=== PATIENT | female | born 1965 | race Caucasian/White ===

== ENCOUNTER → 2020-02-05 | Day surgery (SDC) | payer BC ==
[~2020-02-05] VITALS: Ht 172.7 cm; Wt 113.0 kg
[~2020-02-05] MED LIST: ACET325T9 PO; ACETAMINOPHEN 500 MG TABLET PO PRN; ASPI-630 PO; BUPIVACAINE-EPI 0.25%-1:200000 MPF 30 ML VIAL. ONE; FAMOTIDINE 20 MG/2 ML VIAL ONE; GLYCOPYRROLATE 1 MG/5 ML VIAL. ONE; IV RINGERS,LACTATED 1000ML 1,000 ML IV SCH; LIDOCAINE 2% PF 5 ML VIAL. ONE; MIDAZOLAM HCL/PF 2 MG/2 ML VIAL. ONE; MINERAL OIL for SURGERY 10 ML VIAL. MC ONE; NEOSTIGMINE METHYLSULFATE 5 MG/5 ML SYRINGE. ONE; ONDANSETRON PF 4 MG/2 ML VIAL. IV PRN; ONDANSETRON PF 4 MG/2 ML VIAL. ONE; OXYC-325 PO; PHENYLEPHRINE in 0.9% NACL PF 1 MG/10 ML SYRINGE. IV ONE; PROCHLORPERAZINE 10 MG/2 ML VIAL. IV PRN; PROCHLORPERAZINE 10 MG/2 ML VIAL. ONE; PROPOFOL 20 ML IV ONE; ROCURONIUM 50 MG/5 ML VIAL. ONE; SEVOFLURANE 61 TO 120 MINUTES. IH ONE; SIMV20TA18 PO; fentaNYL PF VIAL 100 MCG/2 ML VIAL IV PRN; fentaNYL PF VIAL 100 MCG/2 ML VIAL ONE; oxyCODONE/APAP 5/325 1 TAB TABLET PO ONE
--- NOTE | 2020-02-05 13:28 | DISCH ---
DISCHARGE INSTRUCTIONS Condition on Discharge Condition on Discharge: Stable Activity After Discharge Activity Instructions for Disc: Avoid exertion Other activity instructions: No lifting >20lbs for 2 weeks Diet after Discharge Diet after Discharge: Regular Wound Incision Care Other wound/incision instructi: may shower in 24 hours Contacting the after DC Call your doctor for: If your condition worsens Follow-Up Follow up with: Dr Hyman in 2 weeks RANGEL HYMAN MD Feb 05, 2020 13:28
--- NOTE | 2020-02-05 13:38 | PDOC4 ---
Operative Note Operative Note Date: 02/05/2020 at 1334 Preoperative diagnosis: Incarcerated ventral hernia Postoperative diagnosis: Same Procedure: Robotic assisted laparoscopic ventral hernia repair with mesh Surgeon: Reyes Specimen: None Dictation: Patient is a 54-year-old female whose had epigastric pain and a bulge that is consistent with a hernia. The procedure of robotic assisted laparoscopic ventral hernia repair with mesh was explained to the patient in detail respite effects were also discussed including bleeding infection injury to intra-abdominal contents possibly necessitating further or open operations alternatives to this procedure also discussed with the patient who seemed to understand and gave both verbal and written consent to have the procedure performed. The patient was taken to the operating room placed in the supine position general anesthesia was initiated once patient was asleep and intubated her abdomen was prepped and draped usual sterile fashion using ChloraPrep and area in the left upper quadrant was injected with quarter percent Marcaine with epinephrine incision was made with 11 blade scalpel and a 5 mm Visiport was placed under direct visualization into the abdomen created pneumoperitoneum once this was complete a 5 mm camera was placed within the abdomen and inspected it was noted that there was incarcerated omentum within the hernia defect a 8 mm da Andrew port was placed in the left midabdomen a second da Andrew port was placed in the left lower abdomen and the 5 mm Visiport was changed out for a millimeter da Andrew port. At this point the robot was then brought in and docked all port sites a grasper and Endo Magdi scissors were placed in the surgeon went to the robotic console. Using a grasper and Endo Magdi scissors the omentum was reduced from the hernia defect adhesions were taken down. The hernia defect was then closed with a running 2 OV lock nonabsorbable suture. Ventral light ST mesh was then placed over the hernia defect this was sewn into place with a 2 OV lock absorbable suture. The robot was undocked from all port sites the pneumoperitoneum reduced all ports were removed the port sites were all closed with 4-0 subcuticular Monocryl Mastisol Steri-Strips and island dressings were a pplied. Patient was awakened and extubated in the operating room taken to recovery in stable condition all sponge instrument needle counts listed as correct estimated blood loss 5 mL. RANGEL HYMAN MD Feb 05, 2020 13:38
[2020-02-05 14:45] VITALS: BP 127/59
== END ==
LOC: SURG 09:24
PROVIDERS: ATTEND Surgery
DX: K43.6 Other and unspecified ventral hernia with obstruction, without gangrene (principal); G43.909 Migraine, unspecified, not intractable, without status migrainosus; I10 Essential (primary) hypertension; E78.00 Pure hypercholesterolemia, unspecified; F41.9 Anxiety disorder, unspecified; E66.9 Obesity, unspecified; Z68.37 Body mass index [BMI] 37.0-37.9, adult; Z86.73 Personal history of transient ischemic attack (TIA), and cerebral infarction without residual deficits; Z79.899 Other long term (current) drug therapy; Z86.718 Personal history of other venous thrombosis and embolism; Z79.82 Long term (current) use of aspirin; Z87.891 Personal history of nicotine dependence; Z90.49 Acquired absence of other specified parts of digestive tract
CPT/HCPCS: 36415; 49653; 84702; A7015; C1781; J0780; J1956; J2001; J2250; J2370; J2405; J2704; J2710; J3010; J3490; J7120; S2900